=== PATIENT | female | born 1975 | race Caucasian/White ===

== ENCOUNTER 2021-06-13 05:55 | Emergency (ER) | payer MEDICAID ==
[~2021-06-13] VITALS: Ht 149.9 cm; Wt 54.4 kg
[~2021-06-13 05:55] MED LIST: ASPI-543 PO; ATOR20TA50 PO; CARV20CA10 PO; CLOP75TA28 PO; ENAL10TA12 PO; NITR0.4S29 SL
[2021-06-13 06:10] VITALS: BP 193/108
== END 2021-06-13 06:23 | disposition left against medical advice (07) ==
LOC: ER 05:55 → EDBD 05:55 → ER 06:11
DX: R51.9 Headache, unspecified (principal); Z53.21 Procedure and treatment not carried out due to patient leaving prior to being seen by health care provider

== ENCOUNTER 2021-06-26 00:51 | Emergency (ER) | payer MEDICAID ==
[~2021-06-26] VITALS: Ht 157.5 cm; Wt 59.0 kg
[2021-06-26 02:30] VITALS: BP 156/124
== END 2021-06-26 05:02 | disposition left against medical advice (07) ==
LOC: EDBD 00:51 → ER 00:51
DX: R06.02 Shortness of breath (principal); Z53.21 Procedure and treatment not carried out due to patient leaving prior to being seen by health care provider
CPT/HCPCS: 93005

== ENCOUNTER 2022-07-02 17:32 | Inpatient (IN) | payer OTHER ==
[~2022-07-02] VITALS: Ht 154.9 cm; Wt 50.0 kg
[2022-07-02 21:06] LABS: Albumin 2.3 g/dL (3.4-5.0); Bilirubin, Total 1.5 mg/dL (0.2-1.0); Calcium 7.5 mg/dL (8.5-10.1); Potassium 3.6 mmol/L (3.5-5.1)
[2022-07-03] MEDS ORDERED: MIDAZOLAM HCL 2MG/2ML 2ml VIAL (1mg/ml) IM ONE (02:00)
[2022-07-03] MEDS ORDERED: HYDROmorphone HCL 2 MG/ML VL/or syr IM ONE (02:00)
[2022-07-03] MEDS ORDERED: LORazepam 2MG/ML-1ML VIAL IM ONE (02:00)
[2022-07-03 03:37] LABS: Basophils # (auto) 0.1 10 ^3/uL (0-0.2); Eosinophils # (auto) 0.2 10 ^3/uL (0-0.8); Lymphocytes # (auto) 1.5 10 ^3/uL (0.4-5.4); Monocytes # (auto) 0.6 10 ^3/uL (0-1.3); Neutrophils # (auto) 4.6 10 ^3/uL (1.6-8.6); Nucleated Red Blood Cells % 0.9 %
[2022-07-03 03:38] LABS: Basophils % (auto) 1.2 % (0.0-2.0); Eosinophils % (auto) 2.7 % (0.0-7.0); Hematocrit 21.8 % (36.0-46.0); Lymphocytes % (auto) 20.9 % (10.0-50.0); Mean Corpuscular Hemoglobin 19.5 pg (28.0-32.0); Mean Corpuscular Hgb Conc. 28.1 g/dL (32.0-36.0); Mean Corpuscular Volume 69.5 fL (80.0-100.0); Monocytes % (auto) 8.6 % (0.0-12.0); Neutrophils % (auto) 66.6 % (37.0-80.0); Red Blood Cells 3.14 10^6/uL (4.0-5.20)
[2022-07-03 03:43] LABS: Hemoglobin 6.1 g/dL (12.2-16.2)
[2022-07-03] MEDS ORDERED: NITROGLYCERIN 0.4 MG SL TAB SL PRN (09:30)
[2022-07-03] MEDS ORDERED: ONDANSETRON HCL 4 MG/2 ML VIAL IV PRN (09:30)
[2022-07-03] MEDS ORDERED: ACETAMINOPHEN 325 MG TAB PO PRN (09:30)
[2022-07-03] MEDS ORDERED: MORPHINE SULFATE INJ 2 MG/ml SYRG IV PRN (09:30)
[2022-07-03] MEDS ORDERED: CARVEDILOL PHOSPHATE PO SCH (10:00)
[2022-07-03 10:02] LABS: Lactic Acid w/Reflex 2.5 mmol/L (0.4-2.0)
[2022-07-03] MEDS ORDERED: VANCOMYCIN PER PHARMACY 0 MG IV SCH (10:30)
[2022-07-03] MEDS ORDERED: SODIUM CHLORIDE 0.9% 500 ML IV ONE (10:30)
[2022-07-03] MEDS ORDERED: SODIUM CHLORIDE 0.9% 1,000 ML IV ONE (10:30)
[2022-07-03] MEDS ORDERED: ENOXAPARIN SOD 100 MG/1 ML SYRINGE SC SCH (10:45)
[2022-07-03] MEDS ORDERED: NITROGLYCERIN 0.4MG/HR TOPICAL PATCH TD ONE (10:45)
[2022-07-03 11:01] LABS: Urine Bacteria NONE SEEN /hpf (None Seen); Urine Blood TRACE /uL (Negative); Urine Specific Gravity 1.018 (1.001-1.035); Urine WBC 1 /hpf (0 - 5)
[2022-07-03] MEDS: CARVEDILOL 3.125 MG TAB PO SCH ×2 (11:06→21:43)
[2022-07-03] MEDS: ENALAPRIL MALEATE 10 MG TAB PO SCH (11:06)
[2022-07-03] MEDS: ATORVASTATIN 20 MG TAB PO SCH (11:06)
[2022-07-03] MEDS: ASPirin-EC 81 mg tab PO SCH (11:06)
[2022-07-03 11:12] LABS: Cholesterol 68 mg/dL (< 200); HDL Cholesterol 20 mg/dL (40-59); LDL Cholesterol 50 mg/dL (< 100); Triglycerides 56 mg/dL (< 150)
[2022-07-03] MEDS: PIPERACILLIN-TAZOB 3.375GM 100 ML IV SCH ×2 (11:39→18:30)
[2022-07-03] MEDS: ENOXAPARIN SOD 60 MG/0.6 ML SYRINGE SC SCH ×2 (11:40→22:00)
[2022-07-03 14:07] LABS: Hemoglobin 5.5 g/dL (12.2-16.2)
[2022-07-03 15:00] VITALS: BP 93/51
[2022-07-03 15:15] VITALS: BP 90/53
[2022-07-03 15:38] VITALS: BP 90/50
[2022-07-03] MEDS: MORPHINE SULFATE INJ 2 MG/ml SYRG IV PRN ×2 (15:58→21:42)
[2022-07-03] MEDS: VANCOMYCIN 750mg/250ml 250 ML IV SCH (16:22)
[2022-07-03 17:20] VITALS: BP 121/83
[2022-07-04] MEDS: HYDROcodone-ACET 5/325MG TAB PO PRN (01:08)
[2022-07-04] MEDS: MORPHINE SULFATE INJ 2 MG/ml SYRG IV PRN ×5 (01:33→19:57)
[2022-07-04] MEDS: PIPERACILLIN-TAZOB 3.375GM 100 ML IV SCH ×3 (02:30→18:30)
[2022-07-04 05:00] VITALS: BP 143/73
[2022-07-04 05:10] LABS: Basophils # (auto) 0.1 10 ^3/uL (0-0.2); Eosinophils # (auto) 0.3 10 ^3/uL (0-0.8); Lymphocytes # (auto) 1.5 10 ^3/uL (0.4-5.4)
[2022-07-04 05:40] LABS: Basophils % (auto) 0.7 % (0.0-2.0); Eosinophils % (auto) 3.5 % (0.0-7.0); Hematocrit 25.3 % (36.0-46.0); Hemoglobin 7.3 g/dL (12.2-16.2); Lymphocytes % (auto) 19.9 % (10.0-50.0); Mean Corpuscular Hemoglobin 21.1 pg (28.0-32.0); Mean Corpuscular Hgb Conc. 28.9 g/dL (32.0-36.0); Mean Corpuscular Volume 72.9 fL (80.0-100.0); Monocytes # (auto) 0.8 10 ^3/uL (0-1.3); Neutrophils % (auto) 65.9 % (37.0-80.0); Red Blood Cells 3.46 10^6/uL (4.0-5.20); White Blood Cell 7.7 10^3/uL (4.4-10.8)
[2022-07-04 05:52] LABS: Red Cell Distribution Width 23.1 % (11.8-14.3)
[2022-07-04] MEDS: VANCOMYCIN 750mg/250ml 250 ML IV SCH ×2 (08:00)
[2022-07-04] MEDS: ATORVASTATIN 20 MG TAB PO SCH (10:00)
[2022-07-04] MEDS: ENOXAPARIN SOD 60 MG/0.6 ML SYRINGE SC SCH ×2 (10:00→22:00)
[2022-07-04] MEDS: NITROGLYCERIN 0.4MG/HR TOPICAL PATCH TD SCH (10:00)
[2022-07-04] MEDS ORDERED: DEXTROSE (50%) 50ML SYRG IV PRN (10:30)
[2022-07-04] MEDS: ENALAPRIL MALEATE 10 MG TAB PO SCH (10:59)
[2022-07-04] MEDS: CARVEDILOL 3.125 MG TAB PO SCH ×2 (11:00→22:00)
[2022-07-04] MEDS: ASPirin-EC 81 mg tab PO SCH (11:01)
[2022-07-04] MEDS: ACCU-CHEK COMFORT CURVE STRIP VI SCH ×3 (11:08→22:00)
[2022-07-04] MEDS: InsuLIN REG 1unit/0.01ml Soln (100units/ml) SC SCH ×3 (11:08→22:00)
[2022-07-04 13:30] VITALS: BP 109/79
[2022-07-04 16:30] VITALS: BP 123/82
[2022-07-05] MEDS: MORPHINE SULFATE INJ 2 MG/ml SYRG IV PRN ×5 (00:50→20:21)
[2022-07-05] MEDS: PIPERACILLIN-TAZOB 3.375GM 100 ML IV SCH ×3 (02:30→18:30)
[2022-07-05 05:00] VITALS: BP 151/105
[2022-07-05] MEDS: InsuLIN REG 1unit/0.01ml Soln (100units/ml) SC SCH ×4 (06:56→22:00)
[2022-07-05] MEDS: ACCU-CHEK COMFORT CURVE STRIP VI SCH ×4 (06:56→22:00)
[2022-07-05] MEDS: NITROGLYCERIN 0.4MG/HR TOPICAL PATCH TD SCH (10:00)
[2022-07-05] MEDS: ATORVASTATIN 20 MG TAB PO SCH (10:00)
[2022-07-05] MEDS: ENALAPRIL MALEATE 10 MG TAB PO SCH (10:00)
[2022-07-05] MEDS: ASPirin-EC 81 mg tab PO SCH (10:00)
[2022-07-05] MEDS: ENOXAPARIN SOD 60 MG/0.6 ML SYRINGE SC SCH ×2 (10:00→22:00)
[2022-07-05] MEDS: CARVEDILOL 3.125 MG TAB PO SCH ×2 (10:00→22:00)
[2022-07-05 10:40] LABS: Hemoglobin 7.5 g/dL (12.2-16.2); Mean Corpuscular Hemoglobin 20.2 pg (28.0-32.0); Mean Corpuscular Volume 74.9 fL (80.0-100.0); Red Blood Cells 3.73 10^6/uL (4.0-5.20); White Blood Cell 10.7 10^3/uL (4.4-10.8)
[2022-07-05 10:42] LABS: Band Neutrophils % (manual) 0; Basophils % (manual) 0 (0.0-2.0); Blast Cells 0; Metamyelocytes % 0; Myelocytes % 0; Promyelocytes % 0; Reactive Lymphocytes 0; Red Cell Distribution Width 23.9 % (11.8-14.3)
[2022-07-05 11:07] LABS: Albumin 2.4 g/dL (3.4-5.0); Calcium 7.8 mg/dL (8.5-10.1); Potassium 4.9 mmol/L (3.5-5.1)
[2022-07-05 11:11] LABS: BUN/Creatinine Ratio 26.7; Bilirubin, Total 1.3 mg/dL (0.2-1.0); Total Protein 6.6 g/dL (6.4-8.2)
[2022-07-05 11:21] LABS: Eosinophils % (manual) 3 (0-7); Lymphocytes % (manual) 14 (10.0-50.0); Monocytes % (manual) 9 (0-12)
[2022-07-05 14:36] VITALS: BP 143/94
[2022-07-05] MEDS: HYDROcodone-ACET 5/325MG TAB PO PRN ×3 (17:29→23:36)
[2022-07-05] MEDS: guaiFENesin-DM 100/10mg/5ml SYR PO PRN ×3 (17:29→21:16)
[2022-07-05 22:00] VITALS: BP 133/100
[2022-07-06] VITALS (8 sets, daily range): BP systolic 98–138; BP diastolic 65–100
[2022-07-06] MEDS: MORPHINE SULFATE INJ 2 MG/ml SYRG IV PRN ×5 (01:21→20:50)
[2022-07-06] MEDS: PIPERACILLIN-TAZOB 3.375GM 100 ML IV SCH ×3 (02:30→16:59)
[2022-07-06] MEDS: guaiFENesin-DM 100/10mg/5ml SYR PO PRN ×3 (03:11→23:42)
[2022-07-06] MEDS: HYDROcodone-ACET 5/325MG TAB PO PRN (03:12)
[2022-07-06 05:36] LABS: Albumin 2.2 g/dL (3.4-5.0); BUN/Creatinine Ratio 31.8; Calcium 7.8 mg/dL (8.5-10.1)
[2022-07-06 05:38] LABS: Bilirubin, Total 1.3 mg/dL (0.2-1.0); Total Protein 6.2 g/dL (6.4-8.2)
[2022-07-06 05:39] LABS: Basophils # (auto) 0.1 10 ^3/uL (0-0.2); Eosinophils # (auto) 0.1 10 ^3/uL (0-0.8); Lymphocytes # (auto) 0.8 10 ^3/uL (0.4-5.4); Mean Corpuscular Volume 75.1 fL (80.0-100.0); Neutrophils # (auto) 5.7 10 ^3/uL (1.6-8.6); White Blood Cell 7.1 10^3/uL (4.4-10.8)
[2022-07-06 05:40] LABS: Basophils % (auto) 0.8 % (0.0-2.0); Eosinophils % (auto) 1.6 % (0.0-7.0); Hematocrit 25.4 % (36.0-46.0); Lymphocytes % (auto) 11.6 % (10.0-50.0); Mean Corpuscular Hemoglobin 20.3 pg (28.0-32.0); Mean Corpuscular Hgb Conc. 27.1 g/dL (32.0-36.0); Monocytes # (auto) 0.4 10 ^3/uL (0-1.3); Monocytes % (auto) 6.1 % (0.0-12.0); Neutrophils % (auto) 79.9 % (37.0-80.0); Nucleated Red Blood Cells % 1.9 %; Red Blood Cells 3.37 10^6/uL (4.0-5.20)
[2022-07-06] MEDS: InsuLIN REG 1unit/0.01ml Soln (100units/ml) SC SCH ×4 (05:44→21:14)
[2022-07-06] MEDS: ACCU-CHEK COMFORT CURVE STRIP VI SCH ×4 (05:46→21:13)
[2022-07-06 05:57] LABS: Red Cell Distribution Width 24.4 % (11.8-14.3)
[2022-07-06 06:00] LABS: Hemoglobin 6.9 g/dL (12.2-16.2)
[2022-07-06] MEDS: ENOXAPARIN SOD 60 MG/0.6 ML SYRINGE SC SCH ×2 (10:00→21:12)
[2022-07-06] MEDS: ATORVASTATIN 20 MG TAB PO SCH (10:00)
[2022-07-06] MEDS: NITROGLYCERIN 0.4MG/HR TOPICAL PATCH TD SCH (10:00)
[2022-07-06] MEDS: ASPirin-EC 81 mg tab PO SCH (10:55)
[2022-07-06] MEDS: CARVEDILOL 3.125 MG TAB PO SCH ×2 (10:55→21:11)
[2022-07-06] MEDS: ENALAPRIL MALEATE 10 MG TAB PO SCH (10:56)
[2022-07-07] MEDS: PIPERACILLIN-TAZOB 3.375GM 100 ML IV SCH ×3 (02:21→18:30)
[2022-07-07 02:40] VITALS: BP 130/83
[2022-07-07] MEDS: MORPHINE SULFATE INJ 2 MG/ml SYRG IV PRN ×6 (02:44→20:04)
[2022-07-07] MEDS: ACCU-CHEK COMFORT CURVE STRIP VI SCH ×4 (06:08→22:00)
[2022-07-07] MEDS: InsuLIN REG 1unit/0.01ml Soln (100units/ml) SC SCH ×4 (06:12→22:00)
[2022-07-07 07:13] LABS: Hematocrit 30.8 % (36.0-46.0); Hemoglobin 8.7 g/dL (12.2-16.2); Mean Corpuscular Hemoglobin 21.8 pg (28.0-32.0); Mean Corpuscular Hgb Conc. 28.3 g/dL (32.0-36.0); Mean Corpuscular Volume 77.1 fL (80.0-100.0); Red Blood Cells 3.99 10^6/uL (4.0-5.20); White Blood Cell 6.7 10^3/uL (4.4-10.8)
[2022-07-07 07:14] LABS: Band Neutrophils % (manual) 0; Basophils % (manual) 0 (0.0-2.0); Blast Cells 0; Eosinophils % (manual) 0 (0-7); Metamyelocytes % 0; Myelocytes % 0; Promyelocytes % 0; Reactive Lymphocytes 0; Red Cell Distribution Width 25.2 % (11.8-14.3)
[2022-07-07 07:25] LABS: Albumin 2.1 g/dL (3.4-5.0); Calcium 7.8 mg/dL (8.5-10.1); Potassium 5.3 mmol/L (3.5-5.1)
[2022-07-07 07:30] LABS: BUN/Creatinine Ratio 37.5; Total Protein 5.8 g/dL (6.4-8.2)
[2022-07-07 08:00] VITALS: BP 119/85
[2022-07-07 08:36] LABS: Lymphocytes % (manual) 20 (10.0-50.0); Monocytes % (manual) 10 (0-12)
[2022-07-07 09:00] VITALS: BP 112/81
[2022-07-07] MEDS: NITROGLYCERIN 0.4MG/HR TOPICAL PATCH TD SCH (10:00)
[2022-07-07] MEDS: CARVEDILOL 3.125 MG TAB PO SCH ×2 (10:00→22:00)
[2022-07-07] MEDS: ASPirin-EC 81 mg tab PO SCH (10:00)
[2022-07-07] MEDS: ATORVASTATIN 20 MG TAB PO SCH (10:00)
[2022-07-07] MEDS: ENALAPRIL MALEATE 10 MG TAB PO SCH (10:00)
[2022-07-07] MEDS: ENOXAPARIN SOD 60 MG/0.6 ML SYRINGE SC SCH ×2 (10:00→22:00)
[2022-07-07 13:00] VITALS: BP 119/85
[2022-07-07 17:00] VITALS: BP 115/78
[2022-07-07 20:00] VITALS: BP 111/68
[2022-07-07] MEDS: guaiFENesin-DM 100/10mg/5ml SYR PO PRN (20:28)
[2022-07-08] MEDS: PIPERACILLIN-TAZOB 3.375GM 100 ML IV SCH ×3 (01:29→18:30)
[2022-07-08] MEDS: InsuLIN REG 1unit/0.01ml Soln (100units/ml) SC SCH ×4 (02:57→21:57)
[2022-07-08] MEDS: ACCU-CHEK COMFORT CURVE STRIP VI SCH ×4 (02:58→21:57)
[2022-07-08] MEDS: MORPHINE SULFATE INJ 2 MG/ml SYRG IV PRN ×4 (02:59→21:47)
[2022-07-08 07:20] LABS: BUN/Creatinine Ratio 44.4; Calcium 7.6 mg/dL (8.5-10.1); Potassium 4.4 mmol/L (3.5-5.1)
[2022-07-08 07:23] LABS: Bilirubin, Total 1.1 mg/dL (0.2-1.0); Total Protein 5.7 g/dL (6.4-8.2)
[2022-07-08 07:26] LABS: Hemoglobin 8.5 g/dL (12.2-16.2); Mean Corpuscular Hemoglobin 21.9 pg (28.0-32.0); Mean Corpuscular Hgb Conc. 28.7 g/dL (32.0-36.0); White Blood Cell 4.5 10^3/uL (4.4-10.8)
[2022-07-08 07:28] LABS: Hematocrit 29.5 % (36.0-46.0); Mean Corpuscular Volume 76.3 fL (80.0-100.0); Red Blood Cells 3.86 10^6/uL (4.0-5.20)
[2022-07-08 07:30] LABS: Red Cell Distribution Width 25.1 % (11.8-14.3)
[2022-07-08 07:31] LABS: Band Neutrophils % (manual) 0; Basophils % (manual) 0 (0.0-2.0); Blast Cells 0; Metamyelocytes % 0; Promyelocytes % 0; Reactive Lymphocytes 0
[2022-07-08 08:00] VITALS: BP 113/75
[2022-07-08 09:00] VITALS: BP 113/75
[2022-07-08 09:00] LABS: Eosinophils % (manual) 1 (0-7); Lymphocytes % (manual) 20 (10.0-50.0); Monocytes % (manual) 2 (0-12); Myelocytes % 1
[2022-07-08] MEDS: ENALAPRIL MALEATE 10 MG TAB PO SCH (10:00)
[2022-07-08] MEDS: ASPirin-EC 81 mg tab PO SCH (10:00)
[2022-07-08] MEDS: ENOXAPARIN SOD 60 MG/0.6 ML SYRINGE SC SCH ×2 (10:00→21:57)
[2022-07-08] MEDS: ATORVASTATIN 20 MG TAB PO SCH (10:00)
[2022-07-08] MEDS: NITROGLYCERIN 0.4MG/HR TOPICAL PATCH TD SCH (10:00)
[2022-07-08] MEDS: CARVEDILOL 3.125 MG TAB PO SCH ×2 (10:00→21:56)
[2022-07-08 13:00] VITALS: BP 151/103
[2022-07-08 17:00] VITALS: BP 141/75
[2022-07-08] MEDS: Pro-Stat SF 30ml Vanilla PO SCH (18:29)
[2022-07-08] MEDS: HYDROcodone-ACET 5/325MG TAB PO PRN (20:11)
[2022-07-08] MEDS: guaiFENesin-DM 100/10mg/5ml SYR PO PRN (21:29)
[2022-07-09] MEDS: HYDROcodone-ACET 5/325MG TAB PO PRN ×3 (00:10→16:48)
[2022-07-09] MEDS: MORPHINE SULFATE INJ 2 MG/ml SYRG IV PRN ×4 (01:51→14:12)
[2022-07-09] MEDS: PIPERACILLIN-TAZOB 3.375GM 100 ML IV SCH ×2 (02:30→10:03)
[2022-07-09] MEDS: ACCU-CHEK COMFORT CURVE STRIP VI SCH ×2 (06:22→12:50)
[2022-07-09] MEDS: InsuLIN REG 1unit/0.01ml Soln (100units/ml) SC SCH ×2 (06:23→12:50)
[2022-07-09 06:31] LABS: Hematocrit 30.1 % (36.0-46.0); Hemoglobin 8.6 g/dL (12.2-16.2); Mean Corpuscular Hemoglobin 22.1 pg (28.0-32.0); White Blood Cell 4.6 10^3/uL (4.4-10.8)
[2022-07-09 06:34] LABS: Mean Corpuscular Hgb Conc. 28.8 g/dL (32.0-36.0); Mean Corpuscular Volume 76.8 fL (80.0-100.0); Red Blood Cells 3.92 10^6/uL (4.0-5.20)
[2022-07-09 06:38] LABS: Red Cell Distribution Width 26.1 % (11.8-14.3)
[2022-07-09 06:40] LABS: Basophils % (manual) 0 (0.0-2.0); Blast Cells 0; Metamyelocytes % 0; Promyelocytes % 0
[2022-07-09 09:02] VITALS: BP 121/86
[2022-07-09 09:04] LABS: Alanine Aminotransferase 22 U/L (13-56); Albumin 2.1 g/dL (3.4-5.0); Anion Gap 4 (5-15); Aspartate Aminotransferase 22 U/L (15-37); Blood Urea Nitrogen 16 mg/dL (7-18); Calcium 7.8 mg/dL (8.5-10.1); Carbon Dioxide 32 mmol/L (21-32); Chloride 105 mmol/L (98-107); GFR African American 230 mL/min; GFR Non-African American 190 mL/min; Glucose 85 mg/dL (74-106); Potassium 4.6 mmol/L (3.5-5.1); Sodium 141 mmol/L (136-145)
[2022-07-09 09:08] LABS: Alkaline Phosphatase 129 U/L (45-117)
[2022-07-09] MEDS: ENOXAPARIN SOD 60 MG/0.6 ML SYRINGE SC SCH (10:00)
[2022-07-09] MEDS: ASPirin-EC 81 mg tab PO SCH (10:00)
[2022-07-09] MEDS: NITROGLYCERIN 0.4MG/HR TOPICAL PATCH TD SCH (10:00)
[2022-07-09] MEDS: CARVEDILOL 3.125 MG TAB PO SCH (10:00)
[2022-07-09] MEDS: ATORVASTATIN 20 MG TAB PO SCH (10:01)
[2022-07-09] MEDS: Pro-Stat SF 30ml Vanilla PO SCH (10:02)
[2022-07-09] MEDS: ENALAPRIL MALEATE 10 MG TAB PO SCH (10:03)
[2022-07-09 11:02] LABS: Band Neutrophils % (manual) 4; Eosinophils % (manual) 5 (0-7); Lymphocytes % (manual) 24 (10.0-50.0); Monocytes % (manual) 11 (0-12); Myelocytes % 2; Reactive Lymphocytes 1
[2022-07-09] MEDS ORDERED: AMOX500T86 PO (11:12)
[2022-07-09] MEDS ORDERED: FURO1TAB33 PO (11:12)
[2022-07-09] MEDS ORDERED: METF-370 PO (11:14)
[2022-07-09] MEDS ORDERED: FUROSEMIDE 20 MG/2 ML VIAL IV ONE (11:15)
[2022-07-09 16:59] VITALS: BP 123/59
== END 2022-07-09 17:18 | disposition home or self-care (01) | DRG 720 ==
LOC: ER 17:32 → TELE-WESTW 22:59 → TELE 07-03 09:22 → TELE-WESTW 07-03 23:20 → WEST WING 07-05 23:44
PROVIDERS: ADMIT Registered Nurse; ATTEND Internal Medicine Pulmonary Disease
PROC: 30233N1 Transfusion of Nonautologous Red Blood Cells into Peripheral Vein, Percutaneous Approach (ICD-10-PCS; principal; 2022-07-03)
PROC: 06HM33Z Insertion of Infusion Device into Right Femoral Vein, Percutaneous Approach (ICD-10-PCS; 2022-07-03)
DX: A41.9 Sepsis, unspecified organism (principal); G92.8 Other toxic encephalopathy; E43 Unspecified severe protein-calorie malnutrition; I24.9 Acute ischemic heart disease, unspecified; I27.20 Pulmonary hypertension, unspecified; E11.9 Type 2 diabetes mellitus without complications; D64.9 Anemia, unspecified; E78.5 Hyperlipidemia, unspecified; I08.1 Rheumatic disorders of both mitral and tricuspid valves; I50.9 Heart failure, unspecified; J44.9 Chronic obstructive pulmonary disease, unspecified; Z20.822 Contact with and (suspected) exposure to COVID-19; B95.4 Other streptococcus as the cause of diseases classified elsewhere; E87.5 Hyperkalemia; I11.0 Hypertensive heart disease with heart failure; I25.2 Old myocardial infarction; I25.10 Atherosclerotic heart disease of native coronary artery without angina pectoris; Z88.8 Allergy status to other drugs, medicaments and biological substances; Z59.00 Homelessness unspecified; Z68.20 Body mass index [BMI] 20.0-20.9, adult
CPT/HCPCS: 36415; 36430; 36556; 71275; 80053; 80061; 81001; 82565; 82962; 83036; 83605; 83880; 84443; 84484; 85007; 85014; 85018; 85025; 85027; 86850; 86900; 86901; 86920; 87040; 87086; 87426; 93005; 93306; 93971; 96360; 96372; 99291; G0378; J2250; J2405; J2543

== ENCOUNTER 2022-07-12 01:02 | Inpatient (IN) | payer OTHER ==
[~2022-07-12] VITALS: Ht 160 cm; Wt 59.0 kg
[~2022-07-12 01:02] MED LIST changes: +AMOX500T86 PO; -CLOP75TA28 PO; +FURO1TAB33 PO; +METF-370 PO
[2022-07-12 02:26] LABS: Basophils # (auto) 0.1 10 ^3/uL (0-0.2); Eosinophils # (auto) 0 10 ^3/uL (0-0.8)
[2022-07-12 02:28] LABS: Basophils % (auto) 1.3 % (0.0-2.0); Eosinophils % (auto) 0.5 % (0.0-7.0); Hematocrit 36.6 % (36.0-46.0); Hemoglobin 10.8 g/dL (12.2-16.2); Lymphocytes % (auto) 14.4 % (10.0-50.0); Mean Corpuscular Hemoglobin 22.1 pg (28.0-32.0); Mean Corpuscular Hgb Conc. 29.4 g/dL (32.0-36.0); Mean Corpuscular Volume 75.2 fL (80.0-100.0); Monocytes # (auto) 0.4 10 ^3/uL (0-1.3); Monocytes % (auto) 5.3 % (0.0-12.0); Neutrophils # (auto) 5.5 10 ^3/uL (1.6-8.6); Neutrophils % (auto) 78.5 % (37.0-80.0); Nucleated Red Blood Cells % 0.3 %; Red Blood Cells 4.87 10^6/uL (4.0-5.20)
[2022-07-12 02:46] LABS: Red Cell Distribution Width 27.4 % (11.8-14.3)
[2022-07-12 02:51] LABS: Albumin 2.8 g/dL (3.4-5.0); BUN/Creatinine Ratio 28.8; Calcium 8.4 mg/dL (8.5-10.1); Potassium 3.4 mmol/L (3.5-5.1)
[2022-07-12 02:54] LABS: Bilirubin, Total 1.5 mg/dL (0.2-1.0); Total Protein 7.1 g/dL (6.4-8.2)
[2022-07-12] MEDS ORDERED: ASPirin 81 mg TAB PO ONE (07:45)
[2022-07-12] MEDS ORDERED: FUROSEMIDE 100 MG/10ML VIAL IV ONE (07:45)
[2022-07-12] MEDS ORDERED: ACETAMINOPHEN 325 MG TAB PO PRN (10:30)
[2022-07-12] MEDS ORDERED: ENOXAPARIN SOD 30 MG/0.3 ML SYRINGE IV ONE (10:30)
[2022-07-12] MEDS ORDERED: MORPHINE SULFATE 4 MG/ML SYR/VIAL IV PRN (10:30)
[2022-07-12] MEDS ORDERED: ONDANSETRON HCL 4 MG/2 ML VIAL IV PRN (10:30)
[2022-07-12] MEDS ORDERED: NITROGLYCERIN 0.4 MG SL TAB SL PRN (10:30)
[2022-07-12] MEDS ORDERED: CARVEDILOL 3.125 MG TAB PO SCH (11:00)
[2022-07-12] MEDS ORDERED: ALBUTEROL SULF 2.5 MG/0.5ML(0.5%) NEB SOLN NEB PRN (20:00)
[2022-07-12 20:22] VITALS: BP 174/113
[2022-07-13] MEDS ORDERED: FUROSEMIDE 40 MG/4 ML VIAL IV SCH (10:00)
[2022-07-13] MEDS ORDERED: ASPirin-EC 81 mg tab PO SCH (10:00)
[2022-07-13] MEDS ORDERED: DOCUSATE SOD 100 MG CAP PO SCH (10:00)
[2022-07-13] MEDS ORDERED: ATORVASTATIN 20 MG TAB PO SCH (10:00)
[2022-07-13] MEDS ORDERED: ENALAPRIL MALEATE 10 MG TAB PO SCH (10:00)
== END 2022-07-13 17:47 | disposition left against medical advice (07) | DRG 194 ==
LOC: EDUNIT# 01:02 → EDBD 01:02 → ER 01:02 → TELE 10:38
PROVIDERS: ADMIT Nurse Practitioner Family; ATTEND Internal Medicine
DX: I11.0 Hypertensive heart disease with heart failure (principal); E43 Unspecified severe protein-calorie malnutrition; I27.20 Pulmonary hypertension, unspecified; D62 Acute posthemorrhagic anemia; J44.1 Chronic obstructive pulmonary disease with (acute) exacerbation; I50.41 Acute combined systolic (congestive) and diastolic (congestive) heart failure; E11.9 Type 2 diabetes mellitus without complications; Z53.21 Procedure and treatment not carried out due to patient leaving prior to being seen by health care provider; E87.6 Hypokalemia; I25.10 Atherosclerotic heart disease of native coronary artery without angina pectoris; I25.2 Old myocardial infarction; Z59.00 Homelessness unspecified; Z88.8 Allergy status to other drugs, medicaments and biological substances; Z68.23 Body mass index [BMI] 23.0-23.9, adult
CPT/HCPCS: 36415; 71045; 80053; 83735; 83880; 84484; 84702; 85025; 93005; G0378